=== PATIENT | male | born 1980 | race Two or more races ===

== ENCOUNTER 2020-05-15 14:38 | Emergency (ER) | payer SELFPAY ==
[2020-05-15 14:59] VITALS: BP 132/76; PULSE 74; RESP 18; TEMP 36.9; O2SAT 98; BMI 25.8
--- NOTE | 2020-05-15 15:15 | HMH.EDUTC ---
[facility] Disposition Clinical Impression: Wound infection Disposition: Home, Self-Care Condition on Discharge: Good Instructions: DI for Wound Infection, Amoxicillin and Clavulanic Acid Additional Instructions: Keep wound area clean and dry Clean with mild antibacterial soap and water and pat dry Removal as advised by the Emergency Room you had the wound closed Take antibiotics as prescribed Follow up with your Family Doctor for removal Straight to ER if any life threatening symptoms Prescriptions: Amoxicillin/Potassium Clav [Augmentin 875-125 Tablet] 1 tab PO Q12H 7 Days #14 tab Transmission Status: Pending to [id number] Referrals: PCP,No [Primary Care Provider] - As needed Time of Disposition: 15:21 Medical Decision Making - Alexander Inquiry Pt receiving controlled substance: No Alexander was queried for this patient: No Vital Signs: 05/15/20 14:59 Temperature 98.4 F Temperature Source Oral Pulse Rate [Left] 74 Respiratory Rate 18 Blood Pressure [Right Arm] 132/76 Blood Pressure Mean [Right Arm] 94 Blood Pressure Source [Right Arm] Automatic Cuff Blood Pressure Position [Right Arm] Sitting 02 Sat by Pulse Oximetry 98 Oxygen Delivery Method Room Air [facility] HPI - General Stated complaint: ao 05/12 hit by horse in head Time Seen by Provider: 05/15/20 15:15 Mode of Arrival: Ambulatory Source of Information: Patient Limitations: No Limitations Description of Symptoms (Recalled from Triage Doc. by RN): Wound check. Laceration on head that was stapled. HEENT Symptoms (Recalled from RN notes): No Resp Symptoms (Recalled from RN notes): No Skin Symptoms (Recalled from RN notes): Yes (wound check) MS Symptoms (Recalled from RN notes): No Functional Status (Recalled from RN notes): stable - History of Present Illness Provider Complaint: Patient state that he was kicked in the head by horse and had laceration that was repaired at [facility] that they noticed it was looking like it was getting infected so they brought him in to get him checked - Related Data Previous Rx's Medication Instructions Recorded Amoxicillin/Potassium Clav 1 tab PO Q12H 7 Days #14 tab 05/15/20 [Augmentin 875-125 Tablet] - Worker's Comp Is this a Worker's Comp case?: No Is this an [facility] Worker's Comp?: No Is this a [facility] Worker's Comp?: No [facility] History - Hepatitis A Screen Drug use history?: No High risk sexual behaviors?: No History of sexually transmitted infection?: No Currently employed?: No Childcare worker?: No Do you have indoor plumbing?: Yes Do you have electricity?: Yes Attestation statement:: This patient has been screened for Hepatitis A risk factors. I have reviewed the patient's past medical history: Yes ROS Obtained: Yes All systems reviewed & no additional complaints, Yes Systems reviewed as appropriate & no additional complaints - Constitutional Constitutional: Reports system reviewed and no additional complaints, except as docu, Denies body ache, Denies chills, Denies fever(s), Denies headache(s) - ENT Ears, Nose, Mouth, and Throat: Reports system reviewed and no additional complaints, except as docu - Cardiovascular Cardiovascular: Reports system reviewed and no additional complaints, except as docu - Allergic/Immunologic Comments: Laceration repair with jordan looks infected having some drainage Physical Exam - General General appearance: alert, in no apparent distress - Expanded Head Exam 1 - area where jordan applied looks mildly red with small area of drainage wound edges still approximated well appears like it may be mildly infected - Respiratory Respiratory exam: Present: normal lung sounds bilaterally. Absent: respiratory distress - Cardiovascular Cardiovascular exam: Present: regular rate, normal rhythm. Absent: JVD - Abdominal Exam Abdominal exam: Present: soft, normal bowel daryl
[2020-05-15 15:33] VITALS: BP 132/76; PULSE 74; RESP 18; TEMP 36.9; O2SAT 98
== END 2020-05-15 15:34 | disposition home or self-care (01) ==
PROVIDERS: Emergency Provider Nurse Practitioner
DX: S01.01XD Laceration without foreign body of scalp, subsequent encounter (principal); L03.811 Cellulitis of head [any part, except face]
CPT/HCPCS: 99201

== ENCOUNTER 2021-11-01 12:29 | Emergency (ER) | payer SELFPAY ==
[2021-11-01 12:30] VITALS: BP 127/60; PULSE 65; RESP 16; TEMP 37.1; O2SAT 98; BMI 28.3
[2021-11-01 12:53] LABS: Microscopic, Urine URINE MICROSCOPIC (MICROSCOPIC)
[2021-11-01 12:59] LABS: Appearance,Urine CLEAR (Clear); Bilirubin,Urine Negative (Negative); Blood, Urine 3+ (Negative); Color,Urine YELLOW (Yellow); Glucose,Urine (UA) Negative (Negative); Ketones,Urine Negative (Negative); Leukocyte Esterase,Urine Negative (Negative); Nitrate,Urine Negative (Negative); Protein,Urine Negative (Negative); Specific Gravity, Urine 1.025 (1.005-1.030); Urobilinogen,Urine 0.2 EU/dl (0.2)
--- NOTE | 2021-11-01 12:59 | CT_ITS ---
FINAL REPORT TECHNIQUE: Axial CT images were performed through the abdomen pelvis utilizing a CTA protocol. Coronal and sagittal reformatted images were submitted. This study was performed with techniques to keep radiation doses as low as reasonably achievable (ALARA). Individualized dose reduction techniques using automated exposure control or adjustment of mA and/or kV according to the patient's size were employed. CLINICAL HISTORY: kicked by horse, right flank pain FINDINGS: CTA: The abdominal aorta is proper caliber. The SMA, celiac axis, and ORQUIDEA are patent. There is no significant stenosis or calcification. The renal arteries are patent bilaterally. ABDOMEN: There is a hypervascular focus in the posterior right lobe of the liver that may represent a small vascular malformation or focal nodular hyperplasia. The gallbladder is present. The spleen is unremarkable. The adrenals are normal. The pancreas is unremarkable. The kidneys enhance appropriately. The aorta is normal in caliber. No free fluid or adenopathy is identified. No findings for mechanical bowel obstruction are identified. PELVIS: The appendix is upper limits of normal in size. The urinary bladder is unremarkable. No free fluid, free air, abscess or adenopathy is identified. There is a mildly displaced fracture of the posterior right 12th rib. There are displaced fractures of the right L1 and L2 transverse processes. IMPRESSION: No evidence of solid organ injury. Mildly displaced posterior right 12th rib fracture. Displaced fractures of the right L1 and L2 transverse processes. Reviewed, Interpreted and Dictated by Eldon Sweeney MD Transcribed by Kaleb Leon Authenticated by Eldon Sweeney MD on 11/01/2021 03:05:11 PM [facility]
--- NOTE | 2021-11-01 12:59 | CT_ITS ---
FINAL REPORT TECHNIQUE: Thin section axial CT images were obtained from the lung apices to the upper abdomen. IV contrast was administered. MIP 3-D reformats were obtained. This study was performed with techniques to keep radiation doses as low as reasonably achievable (ALARA). Individualized dose reduction techniques using automated exposure control or adjustment of mA and/or kV according to the patient's size were employed. CLINICAL HISTORY: kicked by horse, right flank pain, chest pain FINDINGS: The heart size is normal. There are densely calcified right hilar lymph nodes.. There is no filling defect to suggest PE. There is no aortic dissection. There is no pericardial effusion. There is no suspicious infiltrate or nodule. No pleural effusion. There is a mildly displaced fracture of the posterior right 12th rib seen on images 82 and 83 of series 5. There are displaced fractures of the right L1 and L2 transverse process is seen on images 84 and 92 of series 5. There is no pneumothorax. IMPRESSION: No pulmonary embolism or aortic dissection. Mildly displaced right posterior 12th rib fracture without pneumothorax. Displaced right L1 and L2 transverse process fractures. Reviewed, Interpreted and Dictated by Eldon Sweeney MD Transcribed by Kaleb Leon Authenticated by Eldon Sweeney MD on 11/01/2021 03:05:12 PM [facility]
[2021-11-01 13:15] LABS: WBC,Urine Occasional #/hpf (0-3)
[2021-11-01 13:16] LABS: Squamous Epithelial Cell,Urine Occasional #/hpf (0-5)
[2021-11-01 14:03] LABS: Basophils # 0.1 K/mm3 (0-0.2); Basophils % 1.4 % (0.1-2.0); Eosinophils # 0.1 K/mm3 (0.0-0.4); Eosinophils % 1.1 % (0.1-12.0); Hematocrit 43.9 % (42.0-52.0); Hemoglobin 15.1 g/dL (14.1-18.0); Lymphocytes # 1.7 K/mm3 (0.7-4.5); Lymphocytes % 20.2 % (10-50); Mean Corpuscular HGB Conc 34.4 g/dL (31.8-35.4); Mean Corpuscular Hemoglobin 30.8 pg (27.0-31.2); Mean Corpuscular Volume 89.7 fl (80-94); Mean Platelet Volume 9.4 fl (7.4-10.4); Monocytes # 0.5 K/mm3 (0.1-1.0); Monocytes % 5.5 % (1.7-9.3); Neutrophils # 6.2 K/mm3 (1.8-7.8); Neutrophils % 71.8 % (37.0-80.0); Platelet Count 195 K/mm3 (142-424); White Blood Count 8.6 K/mm3 (4.8-10.8)
--- NOTE | 2021-11-01 14:07 | HMH.EDGENADL ---
ED Disposition Clinical Impression: Rib fracture Qualifiers: Encounter type: initial encounter Rib fracture type: single rib Fracture type: closed Laterality: right Qualified Code(s): S22.31XA - Fracture of one rib, right side, initial encounter for closed fracture Lumbar transverse process fracture Qualifiers: Encounter type: initial encounter Fracture type: closed Qualified Code(s): S32.009A - Unspecified fracture of unspecified lumbar vertebra, initial encounter for closed fracture Disposition: Home, Self-Care Condition on Discharge: Good Instructions: DI for Low Back Pain Additional Instructions: Use the incentive spirometer every 2-3 hours with goal of greater than 2000 cc. Take oxycodone as directed for severe pain, follow-up with your PCP. Return with new, worsening, concerning symptoms. Okay to take Tylenol Motrin additionally. Prescriptions: Oxycodone HCl [Oxycodone 5mg tab (IR)] 5 mg PO Q6 PRN 3 Days #12 tab PRN Reason: Severe Pain Transmission Status[id number] Ondansetron [Zofran 4mg ODT] 4 mg SL TIDP PRN 3 Days #12 tab PRN Reason: Nausea And Vomiting Transmission Status: Pending to [facility] Referrals: Provider,Referral, [Primary Care Provider] - Antonia Mata [Referring] - - Critical Care Critical Care Time: No Attestation: On 11/01/21, the high probability of a clinically significant, sudden or life threatening deterioration of the following system(s) required my full and direct attention, intervention and personal management. The time I documented below is in addition to time spent performing reported procedures but includes the following listed in this critical care notation. Medical Decision Making - Medical Records Medical records reviewed: Yes: I reviewed the patient's medical records. - Alexander Inquiry Pt receiving controlled substance: No Vital Signs: 11/01/21 12:30 Temperature 98.8 F Temperature Source Oral Pulse Rate [Radial] 65 Respiratory Rate 16 Blood Pressure [Right Arm] 127/60 Blood Pressure Mean [Right Arm] 82 Blood Pressure Position [Right Arm] Sitting 02 Sat by Pulse Oximetry 98 Oxygen Delivery Method Room Air - Lab Data Lab Results 11/01/21 12:40: Urine Color Yellow, Urine Appearance Clear, Urine pH 6.0, Ur Specific Ray 1.025, Urine Protein Negative, Urine Glucose (UA) Negative, Urine Ketones Negative, Urine Blood 3+, Urine Nitrate Negative, Urine Bilirubin Negative, Urine Urobilinogen 0.2, Ur Leukocyte Esterase Negative, Urine RBC 10-20, Urine WBC Occasional, Ur Squamous Epith Cells Occasional 11/01/21 13:32: WBC 8.6, RBC 4.90, Hgb 15.1, Hct 43.9, MCV 89.7, MCH 30.8, MCHC 34.4, RDW 13.0, Plt Count 195, MPV 9.4, Neut % (Auto) 71.8, Lymph % (Auto) 20.2, Dundy % (Auto) 5.5, Eos % (Auto) 1.1, Baso % (Auto) 1.4, Neut # (Auto) 6.2, Lymph # (Auto) 1.7, Dundy # (Auto) 0.5, Eos # (Auto) 0.1, Baso # (Auto) 0.1 11/01/21 13:32: Sodium 139, Potassium 3.8, Chloride 107, Carbon Dioxide 26, Anion Gap 9.8, BUN 16, Creatinine 0.60 L, Estimated Creat Clear 180, Estimated GFR 150, Est GFR ( Amer) 181, Glucose 109 H, Calcium 9.3, Total Bilirubin 0.6, AST 43, ALT 33, Alkaline Phosphatase 86, Total Protein 6.9, Albumin 4.1, Globulin 2.8, Albumin/Globulin Ratio 1.5, Lipase 45 Result diagrams: 11/01/21 13:32 11/01/21 13:32 Orders (Tests/Meds): ED MEDICATIONS Generic Name Dose Route Start Last Admin Trade Name Freq PRN Reason Stop Dose Admin Morphine Sulfate 4 mg 11/01/21 12:59 Morphine 4mg/Ml Syringe IV 12/01/21 12:58 Q2HP PRN Severe Pain Ondansetron HCl 4 mg 11/01/21 13:00 Ondansetron 4mg/2ml Vial IV 12/01/21 12:59 Q6 PRN Nausea And Vomiting Discontinued Medications Generic Name Dose Route Start Last Admin Trade Name Freq PRN Reason Stop Dose Admin Lactated Ringer's 1,000 mls @ 999 mls/hr 11/01/21 13:00 Lactated Ringer's 1000 Ml Bag IV 11/01/21 14:00 .Q1H1M ERNESTO Iopamidol 1
[2021-11-01 14:10] LABS: Chloride 107 mmol/L (98-107); Potassium 3.8 mmoL/L (3.5-5.1); Sodium 139 mmol/L (136-145)
[2021-11-01 14:12] LABS: Alanine Aminotransferase 33 U/L (12-78); Aspartate Amino Transferase 43 U/L (17-59); Blood Urea Nitrogen 16 mg/dl (9-20); Creatinine Clearance Estimated 180 mL/min (50-200); Estimated Glomerular Filt Rate 150 ml/min (>60); GFR (African American) 181 ML/MIN (>60)
[2021-11-01 14:13] LABS: Albumin Level 4.1 g/dl (3.5-5.0); Albumin/Globulin Ratio 1.5 (1.1-1.8); Alkaline Phosphatase 86 U/L (38-126); Anion Gap 9.8 mEq/L (5-15); Bilirubin,Total 0.6 mg/dl (0.2-1.3); Calcium 9.3 mg/dl (8.4-10.2); Carbon Dioxide 26 mmol/L (22.0-30.0); Globulin 2.8 g/dL (1.3-3.2); Glucose 109 mg/dl (74-100); Lipase 45 U/L (23-300); Total Protein,Serum 6.9 g/dl (6.3-8.2)
--- NOTE | 2021-11-01 15:23 | PC.NURSE ---
1523 incentive spirometer provided, instructions for use given. pt able to reach 2500 with IS. encouraged to use 6-10 times every hour while awake. pt v/u
[2021-11-01 16:01] VITALS: BP 130/66; PULSE 67; RESP 18; TEMP 37.2; O2SAT 98
== END 2021-11-01 16:02 | disposition home or self-care (01) ==
PROVIDERS: Emergency Provider Emergency Medicine
DX: S22.31XA Fracture of one rib, right side, initial encounter for closed fracture (principal); S32.019A Unspecified fracture of first lumbar vertebra, initial encounter for closed fracture; S32.029A Unspecified fracture of second lumbar vertebra, initial encounter for closed fracture; W55.12XA Struck by horse, initial encounter
CPT/HCPCS: 71275; 74174; 80053; 81001; 83690; 85025; 86850; 99284; Q9967

== ENCOUNTER → 2022-03-05 09:51 | Outpatient (CLI) | payer OTHER, SELFPAY ==
[2022-03-05 09:57] LABS: Microscopic, Urine URINE MICROSCOPIC (MICROSCOPIC)
[2022-03-05 10:53] LABS: Appearance,Urine CLEAR (Clear); Bilirubin,Urine Negative (Negative); Blood, Urine Negative (Negative); Color,Urine YELLOW (Yellow); Glucose,Urine (UA) Negative (Negative); Ketones,Urine Negative (Negative); Leukocyte Esterase,Urine Negative (Negative); Nitrate,Urine Negative (Negative); Protein,Urine Negative (Negative); Specific Gravity, Urine >= 1.030 (1.005-1.030); Urobilinogen,Urine 0.2 EU/dl (0.2)
[2022-03-05 11:22] LABS: Squamous Epithelial Cell,Urine Occasional #/hpf (0-5)
[2022-03-05 11:23] LABS: Bacteria,Urine Trace /lpf
[2022-03-05 12:04] LABS: Anion Gap 8.7 mEq/L (5-15); Blood Urea Nitrogen 15 mg/dl (9-20); Calcium 9.3 mg/dl (8.4-10.2); Carbon Dioxide 27 mmol/L (22.0-30.0); Chloride 108 mmol/L (98-107); Estimated Glomerular Filt Rate 125 ml/min (>60); GFR (African American) 151 ML/MIN (>60); Glucose 101 mg/dl (74-100); Potassium 3.7 mmoL/L (3.5-5.1); Sodium 140 mmol/L (136-145)
[2022-03-05 12:06] LABS: Basophils # 0.1 K/mm3 (0-0.2); Basophils % 1.1 % (0.1-2.0); Eosinophils # 0.1 K/mm3 (0.0-0.4); Hemoglobin 15.7 g/dL (14.1-18.0); Lymphocytes # 2.3 K/mm3 (0.7-4.5); Lymphocytes % 34.7 % (10-50); Mean Corpuscular HGB Conc 32.7 g/dL (31.8-35.4); Mean Corpuscular Hemoglobin 30.3 pg (27.0-31.2); Mean Corpuscular Volume 92.5 fl (80-94); Mean Platelet Volume 9.7 fl (7.4-10.4); Monocytes # 0.3 K/mm3 (0.1-1.0); Neutrophils # 3.8 K/mm3 (1.8-7.8); Neutrophils % 57.2 % (37.0-80.0); Platelet Count 211 K/mm3 (142-424); Red Blood Count 5.19 M/mm3 (4.60-6.20); Red Cell Distribution Width 12.9 % (11.5-17.5); White Blood Count 6.6 K/mm3 (4.8-10.8)
== END ==
PROVIDERS: Visit Provider Surgery
DX: Z01.812 Encounter for preprocedural laboratory examination (principal); K40.20 Bilateral inguinal hernia, without obstruction or gangrene, not specified as recurrent; R10.32 Left lower quadrant pain
CPT/HCPCS: 36415; 80048; 81001; 85025

== ENCOUNTER 2025-01-24 11:46 | Emergency (ER) | payer SELFPAY ==
--- NOTE | 2025-01-24 11:55 | XR_ITS ---
FINAL REPORT CLINICAL HISTORY: right rib pain posterior and lateral FINDINGS: There is a right infrahilar nodular density compatible with calcified hilar lymph node. No acute process is identified. There is no evidence of effusion or pneumothorax. Mediastinum is unremarkable. Heart size is normal. IMPRESSION: No acute abnormality. Reviewed, Interpreted and Dictated by Caro Chaves MD Transcribed by Jayne Wilburn Authenticated and [facility]
--- OUTSIDE RECORDS SUMMARY | 2025-01-24 11:55 | XMS_ITS | Clinical Summary ---
Author Organization Healthcare Address [address] [place] [address] Care Team Providers Care Media Law Faculty Member Name Role Phone Unavailable Primary Care Provider Unavailabl e Social History Tobacco Use Types Packs/Day Years Used Date Smoking Tobacco: Never Assessed Sex and Gender Information Value Date Recorded Sex Assigned at Not on file Legal Sex Male 9:32 PM EDT Gender Identity Not on file Sexual Orientation Not on file Plan of Treatment Health Maintenance Due Date Last Done Comments [facility]-Depression Screening 1981 [facility]-Infant/Child/Adol SDOH Screenings 1981 [facility]-Varicella Vaccines (1 of 2 - 13+ 2-dose series) 1994 HPV Vaccines (1 - Male 3-dos e series) 1996 [facility]- SDOH Screenings 11/29/1999 [facility]-Adult SDOH Screenings 11/29/1999 [facility]-DTaP,Tdap,and Td Vaccine s (1 - Tdap) 2000 [facility]-Hepatitis B Vaccines (1 of 3 - 19+ 3-dose series) 2000 [facility]-PTEQQ-17 Vaccine (1 - 20 24-25 season) 2024 [facility]-Influenza Vaccine (#1) 2025 [facility]-Zoster Vaccines (1 of 2) 11/29/2031 [facility]-HIB Vaccines Aged Out No longer e ligible based on patient's age to complete this topic [facility]-Hepatitis A Vaccines Aged Out No longer eligible based on patient's age to complete this topic [facility]-IPV Vaccines Aged Out No longer e ligible based on patient's age to complete this topic [facility]-Pneumococcal Vaccine: Pediatrics (0 to 5 Years) and At-Risk Patients (6 to 49 Years) Aged Out No long er eligible based on patient's age to complete this topic [facility]-Rotavirus Vaccines Aged Out No lo nger eligible based on patient's age to complete this topic
[2025-01-24 11:57] VITALS: BP 144/85; PULSE 86; RESP 18; TEMP 37.6; O2SAT 98; BMI 27.4
[2025-01-24] MEDS: ACYCLOVIR 400MG TAB 800 MG PO (12:07)
[2025-01-24] MEDS: OXYCODONE 5MG IMMEDIATE RELEASE TABLET 5 MG PO (12:07)
[2025-01-24] MEDS: IBUPROFEN 600 MG TABLET 800 MG PO (12:07)
[2025-01-24] MEDS: ACETAMINOPHEN 500MG TAB 1000 MG PO (12:07)
--- NOTE | 2025-01-24 12:07 | HMH.EDGENADL ---
Discharge Plan Disposition Patient Disposition: Home, Self-Care Condition: Good Prescriptions Prescriptions: New acyclovir 800 mg tablet 800 mg PO Q5H Qty: 35 0RF oxycodone 5 mg tablet 5 mg PO Q6H PRN (Reason: pain) Qty: 12 0RF Referrals Follow up/Referrals: Provider,Referral, [Primary Care Provider, Medical] - See instructions Activity Restrictions/Add. Instructions Additional Instructions/Restrictions: You were found to have a shingles rash on your right side. You can take acyclovir to treat the rash. You also prescribed oxycodone for severe pain. Take this as prescribed. You can also take Tylenol and ibuprofen in addition to this. I encourage you to follow-up with your primary care physician over the next week to make sure the rash is improving. If you develop any new or worsening symptoms, or if you become concerned for your health for any reason, return to the emergency department for evaluation Clinical Impressions Clinical Impression: Shingles rash Stand Alone Forms Stand Alone Forms: Work/School Release Instructions Patient Instructions: DI for Shingles Print Language Print Language: Georgian Discharge ED Provider: Jim Stoner General Adult HPI General Chief complaint: Skin/Abscess/Foreign Body Stated complaint: AO Right7/18 sidepain, fell while walking a horse. Time Seen by Provider: 01/24/25 11:50 Mode of Arrival: Ambulatory Source of Information: Patient and Spouse Description of Symptoms (Recalled from ER Triage Doc. by RN): pt complaining of r side pain and has a raised red rash on that side. 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 He notes that he was walking a horse and it jerked him around 4 days ago. He reports feeling like he pulled a muscle in his right ribs at that time but over the last 2 days, he has developed worsening rash in his right rib/flank area that starts in his right mid back and wraps around his chest. He states is very painful. It has increased in size and redness since it began. He does not believe he is vaccinated against chickenpox. Related Data Previous Rx's ?Medication ?Instructions ?Recorded acyclovir 800 mg tablet 800 mg PO Q5H #35 tabs 01/24/25 oxycodone 5 mg tablet 5 mg PO Q6H PRN pain #12 tabs 01/24/25 Allergies Allergy/AdvReac Type Severity Reaction Status Date / Time No Known Allergies Allergy Verified 03/05/22 09:26 [facility] Disclaimer: The information contained in this section may have been updated after the patient was seen, as this information can be updated by other users. Medical History (Updated 01/24/25 @ 12:14 by Jim Stoner MD) Inguinal hernia Social History (Updated 03/05/22 @ 09:27 by ASIF Frank) Smoking Status: Never smoker second hand exposure: No alcohol intake: never current occupational status: employed Travel in the last 8 weeks?: None current occupational exposures/hazards: No caffeine: Yes Have you lived/traveled outside [place] in past 30 days?: No Contact w/someone who lives/traveled outside US past 30 days?: No Exposure to someone with infectious disease in past 14 days?: No Do you have a fever (greater than 100.4 F or 38 C)?: No Have you tested positive for COVID-19?: No Exposed to someone with COVID-19 in past 14 days?: No Do you have a sore throat?: No Do you have a cough?: No Do you have any weakness?: No Do you have any diarrhea?: No Are you experiencing any unusual bleeding?: No Do you have any muscle aches/pain?: No Do you have any abdominal pain?: No Are you experiencing loss of taste or smell?: No Other Medical History Have you received the Flu Vaccine for this season: No Have you received the Pneumonia Vaccine: No ROS Obtained: Yes Systems reviewed as appropriate & no additional complaints except as documented Physical Exam General General appearance: alert and in no apparent distress Head Head exam: atraumatic Eye Eye exam: Present normal appearance ENT ENT exam: Present normal external ear exam Neck Neck exam: Present full ROM Chest Chest inspection: Present symmetric chest wall rise Respiratory Respiratory exam: Present normal lung sounds bilaterally; Absent respiratory distress Cardiovascular Cardiovascular exam: Present regular rate and normal rhythm Abdominal Exam Abdominal exam: Present soft; Absent tenderness or guarding exam: Present deferred Extremities Exam Extremities exam: Present normal inspection Back Exam Back exam: Present normal inspection Neurological Exam Neurological exam: Present alert and oriented X3 Psychiatric Psychiatric exam: Present normal affect Skin Skin exam: Present warm, dry and rash (Erythematous, vesicular rash along the T6 dermatome only on the right side) Medical Decision Making Medical Records Screening: Per USPSTF and CDC recommendations, given the prevalence of disease in our region, it is our hospital?s policy to screen for HIV and viral Hepatitis for all patients aged 18 and over and those with ongoing risk factors. Alexander Inquiry Pt receiving controlled substance: Yes Alexander was queried for this patient: Yes Risks and benefits of using a controlled substance: were discussed with pt by me Vital Signs: 01/24/25 11:57 01/24/25 12:26 Temperature 99.6 F 99.6 F Temperature Source Oral Oral Pulse Rate 86 Pulse Rate [Right] 86 Respiratory Rate 18 16 Blood Pressure 144/85 H Blood Pressure [Right Arm] 144/85 H Blood Pressure Mean [Right Arm] 104 Blood Pressure Source Automatic Cuff Blood Pressure Position Sitting 02 Sat by Pulse Oximetry 98 Oxygen Delivery Method Room Air Orders (Tests/Meds): ED MEDICATIONS Discontinued Medications Generic Name Dose Route Start Last Admin Trade Name Stanleyq PRN Reason Stop Dose Admin Acetaminophen 1,000 mg 01/24/25 11:55 01/24/25 12:07 Acetaminophen 500mg Tab PO 01/24/25 11:56 1,000 mg ONCE ONE Administration Acyclovir 800 mg 01/24/25 11:57 01/24/25 12:07 Acyclovir 400mg Tab PO 01/24/25 11:58 800 mg ONCE ONE Administration Ibuprofen 800 mg 01/24/25 11:55 01/24/25 12:07 Ibuprofen 600 Mg Tablet PO 01/24/25 11:56 800 mg ONCE ONE Administration Oxycodone HCl 5 mg 01/24/25 11:57 01/24/25 12:07 Oxycodone 5mg Immediate Release Tablet PO 01/24/25 11:58 5 mg ONCE ONE Administration ORDERS Category Date Time Status CXR --portable [XR chest portable] Stat Exams 01/24/25 11:55 Taken Medical Decision Narrative: Sonido Rob is a 44-year-old male with no significant past medical history other than a previous rib fracture who presents to the emergency department for complaints of right sided rib pain and rash. He notes that he was walking a horse and it jerked him around 4 days ago. He reports feeling like he pulled a muscle in his right ribs at that time but over the last 2 days, he has developed worsening rash in his right rib/flank area that starts in his right mid back and wraps around his chest. He states is very painful. It has increased in size and redness since it began. He does not believe he is vaccinated against chickenpox. On arrival, patient is mildly hypertensive with blood pressure 144/85, heart rate within normal limits, breathing comfortably on room air with oxygen saturation 98%. Borderline elevated temperature of 99.6. Physical exam, as stated above, revealed an overall well-appearing male in no distress. He has a erythematous and vesicular rash along the right T6 dermatome consistent with shingles. This is painful to palpation. Given patient was initially concern for rib fracture with being jerked around by his horse, will obtain chest x-ray to ensure there is no pneumothorax or rib fracture. Will also give 1 g Tylenol, 800 mg ibuprofen, 5 mg oxycodone and 800 mg acyclovir here in the emergency department. Chest x-ray interpreted by me personally. No rib fracture or pneumothorax present. No other acute findings within the chest. See final radiology report for details. This with the patient is appropriate for outpatient management with acyclovir and will send with a course of oxycodone for severe pain. Will also recommend Tylenol and ibuprofen to help with symptoms. Will have him follow-up with his primary care physician. Return precautions were given. All questions were answered. He demonstrated understanding and was in agreement this plan. He was then discharged from the emergency department in stable condition. Critical Care Critical Care Time Critical Care Time: No
[2025-01-24 12:26] VITALS: BP 144/85; PULSE 86; RESP 16; TEMP 37.6; O2SAT 98
== END 2025-01-24 12:33 | disposition home or self-care (01) ==
PROVIDERS: Emergency Provider Student in an Organized Health Care Education/Training Program
DX: B02.9 Zoster without complications (principal)
CPT/HCPCS: 71045; 99283